=== PATIENT | female | born 2000 | race Caucasian/White ===

== ENCOUNTER 2022-06-13 20:40 | Emergency (ER) | payer OTHER, SELFPAY ==
--- NOTE | ~2022-06-13 | XR_ITS ---
EXAMINATION: XR knee RT 3V DATE: 06/13/2022 21:31 INDICATION: Right knee injury. TECHNIQUE: 3 views of right knee were obtained. COMPARISON: None. FINDINGS: Bone alignment is normal. No fracture. Joint spaces are well maintained. There is no knee j oint effusion. IMPRESSION: 1. Normal right knee. Reviewed, dictated and finalized at location A. LEAD IMPRESSION: 1. Normal right knee.
[2022-06-13 20:46] VITALS: BP 110/70; PULSE 89; RESP 16; TEMP 37.2; O2SAT 100
--- NOTE | 2022-06-13 21:52 | ED.LOWEXIN ---
HPI - Extremity Injury (Lower) General Chief Complaint: Extremity Injury, Lower Stated Complaint: right knee injury Time Seen by Provider: 06/13/22 21:15 History of Present Illness HPI Narrative: 22-year-old female presenting to the emergency department for evaluation of right knee pain. Patient states she was skiing and had an injury where she fell and injured her knee. Patient was immobilized by the ski staff. Patient denies any numbness or weakness but does report pain located at the right knee. Patient states the pain does radiate down her leg. Patient denies any other pain or injury. Patient denies any had any loss of consciousness. Related Data Allergies Allergy/AdvReac Type Severity Reaction Status Date / Time No Known Allergies Allergy Verified 06/13/22 21:38 Review of Systems Review of Systems: CONSTITUTIONAL: Denies fever, chills, or sweats. EYES: Denies visual changes, redness, or discharge. ENT: Denies rhinorrhea, congestion, sore throat, or otalgia. CARDIOVASCULAR: Denies chest pain, palpitations, or edema. RESPIRATORY: Denies cough or dyspnea. GASTROINTESTINAL: Denies abdominal pain, nausea, vomiting, or diarrhea. GENITOURINARY: Denies dysuria or hematuria. SKIN: Denies rash or itching. MUSCULOSKELETAL: See HPI NEUROLOGIC: Denies headache, numbness, or weakness. . Exam Narrative: APPEARANCE: Well appearing, no pain, no distress, well-nourished. HEAD: normocephalic, atraumatic. EYES: PERRLA/EOMI, conjunctivae clear. NOSE: Normal no drainage NECK: Supple. No adenopathy, no masses. RESPIRATORY: Airway patent, respirations nonlabored. Clear to auscultation bilaterally, no rales, rhonchi, wheezing. CARDIOVASCULAR: Regular rate and rhythm without murmurs rubs or gallops. ABDOMINAL: Soft, nontender, nondistended, normal bowel sounds MUSCULOSKELETAL: Right knee posterior tenderness. Neurovascular intact. No tenderness of proximal or distal leg. Joint stability difficult to assess due to pain NEURO: Alert. Cranial nerves II through XII intact. Grossly intact SKIN: Warm, dry. Normal Color Course Course Emergency Course: X-ray was negative for acute fracture or dislocation. Patient was provided a knee immobilizer for comfort and crutches for limited weightbearing. Differential diagnosis for patient's symptoms does include fracture/dislocation, ligament injury, or other internal derangement of the knee. With negative fractures patient is being placed in a knee immobilizer and crutches for limited weightbearing and patient will have close outpatient follow-up with her primary care physician and with orthopedics. Patient was advised that she can take Tylenol and ibuprofen for pain control. Patient was also provided Flexeril for muscle spasm. Patient was informed that she may need outpatient MRI. All questions and concerns were addressed. Vital Signs Vital signs: Vital Signs Temperature 99.0 F 06/13/22 20:46 Pulse Rate 89 06/13/22 20:46 Respiratory Rate 16 06/13/22 20:46 Blood Pressure 110/70 06/13/22 20:46 Pulse Oximetry 100 06/13/22 20:46 Oxygen Delivery Room Air 06/13/22 20:46 Temperature 99.0 F 06/13/22 20:46 Pulse Rate 89 06/13/22 20:46 Respiratory Rate 16 06/13/22 20:46 Blood Pressure 110/70 06/13/22 20:46 Pulse Oximetry 100 06/13/22 20:46 Oxygen Delivery Room Air 06/13/22 20:46 MDM - Extremity Injury (Lower) Imaging Data Radiologist's impression: Impressions Knee X-Ray 06/13/22 21:35 IMPRESSION: 1. Normal right knee. Discharge Plan Discharge Clinical Impression: Right knee pain Patient Disposition: Home, Self-Care Condition: Stable Instructions: Antibiotic Form, Crutch Instructions (ED), Knee Pain (ED), Knee Immobilizer (ED) Additional Instructions: Knee immobilizer as directed. Crutches for limited weightbearing. Tylenol and ibuprofen for pain control. Flexeril for muscle spasm. Have close follow-up with your primary
[2022-06-13] MEDS: CYCLOBENZAPRINE HCL 10 MG TABLET PO (22:09)
[2022-06-13] MEDS: IBUPROFEN 600 MG TABLET PO (22:09)
== END 2022-06-13 22:46 | disposition home or self-care (01) ==
PROVIDERS: Emergency Provider Emergency Medicine
DX: S89.91XA Unspecified injury of right lower leg, initial encounter (principal); V00.321A Fall from snow-skis, initial encounter; Y93.23 Activity, snow (alpine) (downhill) skiing, snowboarding, sledding, tobogganing and snow tubing
CPT/HCPCS: 73562; 99283; A9270

== ENCOUNTER 2022-06-29 10:31 | Outpatient (CLI) | payer OTHER, SELFPAY ==
--- NOTE | ~2022-06-29 | MR_ITS ---
EXAMINATION: MR knee RT wo con DATE: 06/29/2022 11:27 INDICATION: Skiing injury, knee pain and swelling TECHNIQUE: Magnetic resonance imaging (MRI) of the right knee was performed without intravenous contr ast. Sequences included axial PD-weighted FS FSE, coronal PD-weighted FSE and PD-weighted FS FSE, sag ittal PD-weighted FSE, and sagittal T2-weighted FS FSE. COMPARISON: X-ray right knee, 06/13/2022. FINDINGS: Medial compartment: Undersurface fraying of the posterior horn, medial meniscus. No discrete meniscal tear. Moderate diff use thinning of cartilage. Lateral compartment: Intact meniscus. Mild diffuse cartilage thinning. Patellofemoral compartment: Patellar cartilage and retinacula are intact. Ligaments and tendons: Complete ACL tear. Partial MCL tear. Mild abnormal signal within the distal aspect of the LCL. The PC L is intact. Abnormal signal in the origin of the lateral head of the gastrocnemius. Remaining flexor and extensor tendons are intact. Fluid: Large volume joint fluid. Osseous/other: Marrow contusions in the lateral aspect of the weightbearing surface of the MFC and the posterior asp ect of the medial and lateral tibial plateau. No suspicious diffuse or focal marrow signal. Abnormal signal in the lateral capsular tissues adjacent to the LCL and lateral head of the gastrocnemius dandy perez. IMPRESSION: 1. Complete ACL tear. 2. Partial MCL tear. 3. Partial LCL tear. 4. Strain of the origin of the lateral head of gastrocnemius muscle. 5. Lateral capsular injury. 6. Large joint effusion. 7. Focal bone marrow contusions, described in detail above Reviewed, dictated and finalized at location K. CULTURAL ECONOMIST
== END 2022-06-29 10:32 | disposition home or self-care (01) ==
PROVIDERS: Visit Provider Orthopaedic Surgery
DX: M25.461 Effusion, right knee (principal); S83.511D Sprain of anterior cruciate ligament of right knee, subsequent encounter; S83.411D Sprain of medial collateral ligament of right knee, subsequent encounter; S83.421D Sprain of lateral collateral ligament of right knee, subsequent encounter; X58.XXXD Exposure to other specified factors, subsequent encounter
CPT/HCPCS: 73721

== ENCOUNTER 2024-02-06 13:58 | Emergency (ER) | payer OTHER, SELFPAY ==
--- NOTE | 2024-02-06 14:06 | ED.WOUNDLAC ---
HPI - Wound/Laceration General Chief Complaint: Wound/Laceration Stated Complaint: LT Thumb Cut Time Seen by Provider: 02/06/24 14:08 Source: patient, RN notes reviewed and old records reviewed Mode of arrival: ambulatory Limitations: no limitations History of Present Illness HPI narrative: 23-year-old female presents to the [facility] with a laceration to the base of left thumb palmar aspect. 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 Unknown last tDap Occurred less than 1 hour ago Onset (ago): hour(s) (1) Related Data Home Medications Medication Instructions Recorded Confirmed No Home Medications 02/06/24 02/06/24 Allergies Allergy/AdvReac Type Severity Reaction Status Date / Time No Known Allergies Allergy Verified 02/06/24 14:08 Review of Systems Review of Systems: All systems reviewed & are unremarkable except as noted in HPI and below Constitutional: Constitutional: Reports no additional constitutional complaints Eyes: Eyes: Reports no additional eye complaints ENT: Reports system reviewed and no additional complaints, except as documented Cardiovascular: Cardiovascular: Reports no additional cardiovascular complaints, Denies chest pain and Denies dyspnea Respiratory: Respiratory: Reports no additional respiratory complaints, Denies chest congestion, Denies cough and Denies dyspnea Gastrointestinal: Gastrointestinal: Reports no additional gastrointestinal complaints, Denies abdominal pain, Denies nausea and Denies vomiting Musculoskeletal: Musculoskeletal: Reports no additional musculoskeletal complaints Integumentary/Breasts: Skin/Breast: Reports as per HPI Neurologic: Reports system reviewed and no additional complaints, except as documented Psychiatric: Psychiatric: Reports no additional psychiatric complaints Allergic/Immunologic: Allergic/Immunologic: Reports no additional allergic/immunologic complaints [facility] Past Medical History Medical History Amputation of toe Tear of anterior cruciate ligament of knee Family History Family History Other Cerebrovascular accident Depression Diabetes mellitus High cholesterol Hypertension Social History Social History Smoking status: Never smoker Comments At the time of my signature, I reviewed and agree with the nursing past medical, surgical, social, and family history. There is no relevant family history pertinent to the patient complaint. Exam Const: General: cooperative, healthy appearing, comfortable, no acute distress, well developed, alert and well nourished Nutritional Appearance: well nourished Orientation/consciousness: patient oriented x3 Limitations: no limitations HENMT: Head: normal to inspection Ears: hearing grossly normal bilaterally and external ears normal Face/Nose/Sinus: Normal external nose present, Normal nares present, Normal nasal mucous membranes and turbinates present, normal facial exam and face symmetric Face and sinus: normal facial exam and face symmetric Eyes: General: appearance normal, both eyes and all related structures Alignment and Position: alignment normal Periorbital: periorbital findings normal Neck: Neck: normal visual inspection, full ROM, no lymphadenopathy and no meningeal signs Chest: Chest palpation & inspection: normal inspection of the chest Resp: Effort & Inspection: normal respiratory effort and able to speak in complete sentences Cardio: Rate: regular rate Skin: General skin exam: normal color and no rashes or lesions noted Lesions: no lesions Rashes: no rashes Trauma: no lacerations or abrasions Wounds: wounds noted Other: Base of thumb at the palmar aspect at the MCP Neuro: General: patient oriented x3, gait normal, tone normal, moves all extremities and no mening
[2024-02-06 14:08] VITALS: BP 128/62; PULSE 95; RESP 18; TEMP 36.6; O2SAT 100
[2024-02-06 14:09] VITALS: BP 128/62; PULSE 95; RESP 18; TEMP 36.6; O2SAT 100
[2024-02-06] MEDS: TETANUS,DIPHTHERIA,AC PERTUSSIS ADULT (0.5 ML) BOOSTRIX IM (14:20)
[2024-02-06] MEDS: LIDOCAINE HCL 1% LOCAL INJ 2 ML AMPUL 4 ML INFILTRATE (14:21)
== END 2024-02-06 14:52 | disposition home or self-care (01) ==
PROVIDERS: Emergency Provider Nurse Practitioner
DX: S61.012A Laceration without foreign body of left thumb without damage to nail, initial encounter (principal); W26.8XXA Contact with other sharp object(s), not elsewhere classified, initial encounter; Z23 Encounter for immunization
CPT/HCPCS: 12001; 90471; 90715; 99212; G0463